=== PATIENT | female | born 1940 | race Caucasian/White ===

== ENCOUNTER 2018-06-20 08:30 | Inpatient (IN) ==
[2018-06-20] MEDS ORDERED: 0.9 % Sodium Chloride 1,000 ML IVC ONE ×2 (08:40→09:35)
--- NOTE | 2018-06-20 08:43 | Emergency Department Note ---
Disposition Clinical Impression: Pneumonia, Bradycardia Disposition: Admitted As Inpatient Condition: Fair General Adult HPI - General Chief complaint: ED Weakness Stated complaint: Low HR/BP Time Seen by Provider: 06/20/18 08:34 Nursing Notes Reviewed: Yes Vital Signs Reviewed: Yes - Related Data Home Medications Medication Instructions Recorded Confirmed Baclofen 10 mg PO BID 11/03/16 06/20/18 Divalproex Sodium [Depakote] 250 mg PO HS 11/03/16 06/20/18 Aspirin [Lo-Dose Aspirin EC] 81 mg PO QAM 12/30/16 06/20/18 Docusate Sodium 100 mg PO QAM 12/30/16 06/20/18 Donepezil HCl [Aricept] 10 mg PO HS 12/30/16 06/20/18 Fluticasone Propionate Nasal 50 mcg NS QAM 12/30/16 06/20/18 [Flonase] Montelukast Sodium [Singulair] 10 mg PO QAM 12/30/16 06/20/18 Polyethylene Glycol 1000 500 gm PO QAM 12/30/16 06/20/18 [Polyethylene Glycol] Acetaminophen [Non-Aspirin] 650 mg PO Q4H PRN 06/20/18 06/20/18 Atorvastatin Calcium [Lipitor] 20 mg PO QPM 06/20/18 06/20/18 Calcium Carbonate/Vitamin D3 1 tab PO DAILY 06/20/18 06/20/18 [Oyster Shell Calcium-Vit D Tab] Multivit/Ca/Min/Fe/FA [Thera M 1 each PO DAILY 06/20/18 06/20/18 Plus] Oxybutynin Chloride [Ditropan Xl] 10 mg PO DAILY 06/20/18 06/20/18 Sertraline [Zoloft] 100 mg PO DAILY 06/20/18 06/20/18 Previous Rx's Medication Instructions Recorded Esomeprazole Magnesium [Nexium] 20 mg PO DAILY PRN #0 01/12/17 Allergies Allergy/AdvReac Type Severity Reaction Status Date / Time No Known Allergies Allergy Verified 11/06/16 17:07 Past Medical History - Past Medical History Medical history: Reports: GERD, hyperlipidemia, hypertension Psychiatric history: Reports: depression 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 - Social History Smoking Status: Never smoker Smokeless Tobacco Status: No Alcohol use: Reports: none Drug use: Reports: none Course Vital Signs Temperature 97.6 F 06/20/18 08:32 Pulse Rate 33 06/20/18 08:32 Respiratory Rate 16 06/20/18 08:32 Blood Pressure 94/59 06/20/18 08:32 O2 Sat by Pulse Oximetry 92 06/20/18 08:32 Temperature 97.6 F 06/20/18 08:32 Pulse Rate 67 06/20/18 10:08 Respiratory Rate 18 06/20/18 11:38 Blood Pressure 92/55 06/20/18 11:38 O2 Sat by Pulse Oximetry 93 06/20/18 10:08 Oxygen Delivery Oxygen Delivery Room Air Medical Decision Making - MDM Narrative Medical decision making narrative: Chest X-Ray 06/20/18 08:37 IMPRESSION: 1. Right lower lobe airspace consolidation consistent with pneumonia. Follow-up imaging recommended to ensure resolution. 2. Small bilateral pleural effusions. 3. Stable cardiomegaly. D/ / Kiah Manrique MD / Kiah Manrique MD Interpreting Provider: Kiah Manrique MD 0935 hrs. colon as she is in a nursing facility will treat as healthcare acquired pneumonia. - Lab Data Result diagrams: 06/20/18 09:11 06/20/18 09:11 Lab Results 06/20/18 06/20/18 06/20/18 Range/Units 09:11 09:11 09:57 WBC 9.6 (4.3-11.1) K/mcL RBC 4.35 (3.82-4.97) M/mcL Hgb 12.5 (11.5-15.4) g/dL Hct 39.3 (35.3-44.9) % MCV 90.3 (83.0-100.0) fL MCH 28.7 (28.0-33.3) pg MCHC 31.8 (31.6-35.5) g/dL RDW 14.8 H (11.5-14.5) % Plt Count 194 (140-400) K/mcL MPV 10.8 (9.4-12.4) fL Immature Gran % 0.3 (0-4) % Seg Neutrophils % 77.8 % Lymphocytes % 10.4 % Monocytes % 6.9 % Eosinophils % 4.2 % Basophils % 0.4 % Neutrophils # 7.5 (1.6-8.9) K/mcL Lymphocytes # 1.0 (0.6-4.6) K/mcL Monocytes # 0.7 (0.0-1.3) K/mcL Eosinophils # 0.4 (0.0-0.6) K/mcL Basophils # 0.0 (0.0-0.2) K/mcL Sodium 140 (136-145) mEq/L Potassium 4.0 (3.5-5.1) mEq/L Chloride 108 H (98-107) mEq/L Carbon Dioxide 26 (23-29) mEq/L BUN 20 (8-23) mg/dL Creatinine 0.80 (0.60-1.20) mg/dL Est GFR ( Amer) > 60 (> 60) Est GFR (Non-Af Amer) > 60 (> 60) BUN/Creatinine Ratio 25 (6-26) Glucose 118 H (70-105) mg/dL Calculated Osmolality 294 (280-300) Lactic Acid 0.9 (0.5-2.2) mmol/L Calcium 8.8 (8.6-10.3) mg/dL Total Bilirubin 0.5 (0.3-1.0) mg/dL Direct Bilirubin 0.0 (0.0-0.2) mg/dL Indirect Bilirubin 0.5 (0.0-1.2) mg/dL AST 17 (13-39) Units/L ALT 11 (7-52) Units/L Alkaline Phosphatase 85 (34-104) Units/L Troponin I < 0.03 (< 0.04) ng/mL Serum Total Protein 6.1 L (6.4-8.9) g/dL Albumin 3.4 L (3.5-5.7) g/dL Globulin 2.7 (2.4-3.5) g/dL Albumin/Globulin Ratio 1.3 (1.1-2.2) Valproic Acid 21 L (50-100) mcg/mL Critical Care Time Critical Care Time: Yes Total Critical Care Time: 40 Attestation: Excluding any separately billable procedures Attestation Statement - Attestation Attestation: This documentation is done with the assistance of Dragon dictation. Despite efforts made to ensure accuracy, there may be inaccuracies in seasoner or spelling and typographical errors. I examined this patient and my medical decision-making was reviewed with the Resident Physician. I agree with the documented findings, disposition and treatment plan as described except to the extent set forth below. Patient seen and evaluated on arrival with EMS and Dr. Guerrier, I agree with her evaluation and management plan, supervise care the patient's stay. Patient presents from nursing facility with a history of bradycardia down below 60. Patient has no complaints except for cough. However her complaints tend to change. Medics state she has a history of dementia and psychiatric disorder. She is cooperative here. Looks like she has weakness on the right which is chronic for them possibly consistent with an old stroke. We will look up her previous medical history. Check a chest x-ray give her some fluids medical workup and then she will need admission for her bradycardia. Her blood pressure stable despite the bradycardia at this time.
[2018-06-20] MEDS ORDERED: *HR* Atropine Sulfate 1 MG/10 ML SYRINGE IVP ONE (08:49)
--- NOTE | 2018-06-20 09:03 | Emergency Department Note ---
Disposition Clinical Impression: Bradycardia Pneumonia Qualifiers: Pneumonia type: due to unspecified organism Laterality: right Lung location: upper lobe of lung Qualified Code(s): J18.1 - Lobar pneumonia, unspecified organism Disposition: Admitted As Inpatient Condition: Fair Time of Disposition: 11:03 General Adult HPI - General Chief complaint: ED Weakness Stated complaint: Low HR/BP Time Seen by Provider: 06/20/18 08:34 Source: patient, EMS Mode of arrival: EMS Limitations: no limitations Nursing Notes Reviewed: Yes Vital Signs Reviewed: Yes - History of Present Illness HPI Narrative: 77-year-old female with significant past medical history of hypertension and hyperlipidemia presented to the emergency Department chief complaint of hypotension and bradycardia. Patient lives at a [facility] facility. She was transferred here because they were concerned for low blood pressure and heart rate. The patient arrived her with in the 60s. Patient states she has had a cough for a long time but does not know if it has gotten worse recently. Patient is a poor historian. Patient denies any chest pain or shortness of breath. Denies any fevers or abdominal pain. Pain Scale: 0 - Related Data Home Medications Medication Instructions Recorded Confirmed Baclofen 10 mg PO BID 11/03/16 12/30/16 Divalproex Sodium [Depakote] 250 mg PO HS 11/03/16 12/30/16 Aspirin [Lo-Dose Aspirin EC] 81 mg PO QAM 12/30/16 12/30/16 Docusate Sodium 100 mg PO QAM 12/30/16 12/30/16 Donepezil HCl [Aricept] 10 mg PO HS 12/30/16 12/30/16 Fluticasone Propionate Nasal 50 mcg NS QA 12/30/16 12/30/16 [Flonase] Montelukast Sodium [Singulair] 10 mg PO QAM 12/30/16 12/30/16 Polyethylene Glycol 1000 500 gm PO QAM 12/30/16 12/30/16 [Polyethylene Glycol] Acetaminophen [Non-Aspirin] 650 mg PO Q4H PRN 06/20/18 06/20/18 Atorvastatin Calcium [Lipitor] 20 mg PO QPM 06/20/18 06/20/18 Calcium Carbonate/Vitamin D3 1 tab PO DAILY 06/20/18 06/20/18 [Oyster Shell Calcium-Vit D Tab] Multivit/Ca/Min/Fe/FA [Thera M 1 each PO DAILY 06/20/18 06/20/18 Plus] Oxybutynin Chloride [Ditropan Xl] 10 mg PO DAILY 06/20/18 06/20/18 Sertraline [Zoloft] 100 mg PO DAILY 06/20/18 06/20/18 Previous Rx's Medication Instructions Recorded Esomeprazole Magnesium [Nexium] 20 mg PO DAILY PRN #0 01/12/17 Allergies Allergy/AdvReac Type Severity Reaction Status Date / Time No Known Allergies Allergy Verified 11/06/16 17:07 All systems ED: reviewed and negative except as stated. Constitutional: Denies: fever, chills Eyes: Reports: as per HPI ENT ED: Reports: as per HPI Cardiovascular: Denies: chest pain, palpitations, dyspnea on exertion Respiratory: Reports: cough. Denies: dyspnea, wheezes Gastrointestinal: Denies: abdominal pain, nausea, vomiting Genitourinary: Reports: as per HPI Musculoskeletal: Reports: as per HPI Integumentary: Reports: as per HPI Neurological: Denies: weakness, numbness, paresthesias Psychiatric: Reports: as per HPI Endocrine: Reports: as per HPI Hematological/Lymphatic: Reports: as per HPI Allergic/Immunologic: Reports: as per HPI Past Medical History - Past Medical History Attestation: Yes The following information was validated with the patient. 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 Absent: scleral icterus, conjunctival injection - ENT ENT exam: normal exam, mucous membranes moist - Neck Neck exam: Present: normal inspection, full ROM. Absent: tenderness, meningismus - Chest Chest inspection: Present: normal inspection, symmetric chest wall rise. Absent : tenderness, rash - Respiratory Respiratory exam: Present: other (Coarse breath sounds throughout). Absent: respiratory distress, wheezes - Cardiovascular Cardiovascular exam: Present: regular rate, normal rhythm, normal heart sounds - Abdominal Exam Abdominal exam: Present: soft, Non-Tender. Absent: distention, guarding, rebound - Extremities Exam Extremities exam: Present: normal inspection, full ROM - Neurological Exam Neurological exam: Present: alert, oriented X3 - Psychiatric Psychiatric exam: Present: normal affect, normal mood - Skin Skin exam: Present: warm, intact Course Course Narrative: 77-year-old female presenting for bradycardia and hypotension. During examination patient's heart rate in the 60s. Patient states she has had cough but otherwise asymptomatic. After examination patient heart rate got down to 30s. 0.5 mg atropine given at that time the patient responded well. Due to patient's cough and bradycardia we will perform laboratory analysis including CBC, BMP along with an x-ray and an EKG. Patient is alert and oriented 3 in the room. Vital signs show bradycardia but otherwise stable. Blood pressure in the mid 90s systolic. Patient asymptomatic at this time. Disposition most likely admission but pending results. Patient agrees with this plan. - Reevaluation(s) Reevaluation #1: Patient's laboratory analysis benign. Chest x-ray does show pneumonia. Due to patient living in [facility]dc facility we will provide her with vancomycin, Levaquin and Zosyn. After atropine patient has had no episodes of bradycardia. Has been a symptomatically throughout her stay. I spoke with the hospitalist on-call Dr. Perez who agrees to accept the patient at this time. She is alert and oriented 3 and room with stable vital signs. Vital Signs Temperature 97.6 F 06/20/18 08:32 Pulse Rate 33 06/20/18 08:32 Respiratory Rate 16 06/20/18 08:32 Blood Pressure 94/59 06/20/18 08:32 O2 Sat by Pulse Oximetry 92 06/20/18 08:32 Temperature 97.6 F 06/20/18 08:32 Pulse Rate 67 06/20/18 10:08 Respiratory Rate 18 06/20/18 10:08 Blood Pressure 118/55 06/20/18 10:08 O2 Sat by Pulse Oximetry 93 06/20/18 10:08 Oxygen Delivery Oxygen Delivery Room Air Medical Decision Making - Lab Data Result diagrams: 06/20/18 09:11 06/20/18 09:11 Lab Results 06/20/18 06/20/18 06/20/18 Range/Units 09:11 09:11 09:57 WBC 9.6 (4.3-11.1) K/mcL RBC 4.35 (3.82-4.97) M/mcL Hgb 12.5 (11.5-15.4) g/dL Hct 39.3 (35.3-44.9) % MCV 90.3 (83.0-100.0) fL MCH 28.7 (28.0-33.3) pg MCHC 31.8 (31.6-35.5) g/dL RDW 14.8 H (11.5-14.5) % Plt Count 194 (140-400) K/mcL MPV 10.8 (9.4-12.4) fL Immature Gran % 0.3 (0-4) % Seg Neutrophils % 77.8 % Lymphocytes % 10.4 % Monocytes % 6.9 % Eosinophils % 4.2 % Basophils % 0.4 % Neutrophils # 7.5 (1.6-8.9) K/mcL Lymphocytes # 1.0 (0.6-4.6) K/mcL Monocytes # 0.7 (0.0-1.3) K/mcL Eosinophils # 0.4 (0.0-0.6) K/mcL Basophils # 0.0 (0.0-0.2) K/mcL Sodium 140 (136-145) mEq/L Potassium 4.0 (3.5-5.1) mEq/L Chloride 108 H (98-107) mEq/L Carbon Dioxide 26 (23-29) mEq/L BUN 20 (8-23) mg/dL Creatinine 0.80 (0.60-1.20) mg/dL Est GFR ( Amer) > 60 (> 60) Est GFR (Non-Af Amer) > 60 (> 60) BUN/Creatinine Ratio 25 (6-26) Glucose 118 H (70-105) mg/dL Calculated Osmolality 294 (280-300) Lactic Acid 0.9 (0.5-2.2) mmol/L Calcium 8.8 (8.6-10.3) mg/dL Total Bilirubin 0.5 (0.3-1.0) mg/dL Direct Bilirubin 0.0 (0.0-0.2) mg/dL Indirect Bilirubin 0.5 (0.0-1.2) mg/dL AST 17 (13-39) Units/L ALT 11 (7-52) Units/L Alkaline Phosphatase 85 (34-104) Units/L Troponin I < 0.03 (< 0.04) ng/mL Serum Total Protein 6.1 L (6.4-8.9) g/dL Albumin 3.4 L (3.5-5.7) g/dL Globulin 2.7 (2.4-3.5) g/dL Albumin/Globulin Ratio 1.3 (1.1-2.2) Valproic Acid 21 L (50-100) mcg/mL - EKG Data EKG #1 EKG attestation: Yes I reviewed and interpreted this EKG. EKG results narrative: Sinus rhythm with PVCs. 66 bpm. Left atrial enlargement. AZ interval 170, QRS 74, QTC 394. Diffuse artifact throughout the EKG. No signs of acute ST segment elevation or ischemia. Compared to previous EKG completed on 2016 new left atrial enlargement. new PVCs.
[2018-06-20] MEDS ORDERED: Levofloxacin 750 MG/150 ML 750 MG/150 ML BAG IVPB ONE (09:35)
[2018-06-20] MEDS ORDERED: Piperacillin/Tazobactam 3.375 GM in 0.9 % Sodium Chloride Mini Bag 100 ML IVPB ONE (09:35)
[2018-06-20 09:37] LABS: Basophils % 0.4 %; Eosinophils # 0.4 K/mcL (0.0-0.6); Eosinophils % 4.2 %; Hematocrit 39.3 % (35.3-44.9); Hemoglobin 12.5 g/dL (11.5-15.4); Immature Granulocytes % 0.3 % (0-4); Lymphocytes % 10.4 %; Mean Corpuscular HGB Conc 31.8 g/dL (31.6-35.5); Mean Corpuscular Hemoglobin 28.7 pg (28.0-33.3); Mean Corpuscular Volume 90.3 fL (83.0-100.0); Mean Platelet Volume 10.8 fL (9.4-12.4); Monocytes # 0.7 K/mcL (0.0-1.3); Monocytes % 6.9 %; Neutrophils # 7.5 K/mcL (1.6-8.9); Platelet Count 194 K/mcL (140-400); Red Blood Count 4.35 M/mcL (3.82-4.97); Red Cell Distribution Width 14.8 % (11.5-14.5); Segmented Neutrophils % 77.8 %
[2018-06-20 09:52] LABS: Troponin I < 0.03 ng/mL (< 0.04)
[2018-06-20 09:53] LABS: Alanine Aminotransferase 11 Units/L (7-52); Albumin 3.4 g/dL (3.5-5.7); Albumin/Globulin Ratio 1.3 (1.1-2.2); Alkaline Phosphatase 85 Units/L (34-104); Aspartate Amino Transferase 17 Units/L (13-39); BUN/Creatinine Ratio 25 (6-26); Bilirubin,Indirect 0.5 mg/dL (0.0-1.2); Bilirubin,Total 0.5 mg/dL (0.3-1.0); Blood Urea Nitrogen 20 mg/dL (8-23); Calcium 8.8 mg/dL (8.6-10.3); Carbon Dioxide 26 mEq/L (23-29); Chloride 108 mEq/L (98-107); Globulin 2.7 g/dL (2.4-3.5); Glucose 118 mg/dL (70-105); Osmolality,Calculated 294 (280-300); Sodium 140 mEq/L (136-145); Total Protein 6.1 g/dL (6.4-8.9); Valproate 21 mcg/mL (50-100); eGFR For Non-African Americans > 60 (> 60)
[2018-06-20 11:26] LABS: Bilirubin,Urine Negative (Negative); Blood,Urine Negative (Negative); Clarity,Urine Clear (Clear); Color,Urine Yellow (Yellow); Glucose,Urine (UA) Normal (Normal); Ketones,Urine Trace mg/dL (Negative); Leukocyte Esterase,Urine Small (Negative); Nitrite,Urine Negative (Negative); Protein,Urine Trace mg/dL (Neg-Trace); Specific Gravity,Urine 1.027 (1.010-1.025); Urobilinogen,Urine Normal (Normal)
[2018-06-20 11:28] LABS: Bacteria,Urine None Seen per hpf (None-Few); Hyaline Casts,Urine None Seen per lpf (None-Few); Squamous Epithelial Cell,Urine Many per lpf (None-Few)
[2018-06-20] MEDS: 0.9 % Sodium Chloride 1,000 ML IVC SCH (15:58)
[2018-06-20] MEDS: Piperacillin/Tazobactam 3.375 GM in 0.9 % Sodium Chloride Mini Bag 100 ML IVPB SCH ×2 (15:59→23:34)
[2018-06-20] MEDS ORDERED: Acetaminophen 325 MG TABLET PO PRN (19:58)
[2018-06-20] MEDS: Baclofen 10 MG TABLET PO SCH (21:46)
[2018-06-20] MEDS: Divalproex (12 HR) 250 MG TABLET PO SCH (21:46)
[2018-06-20] MEDS: Ipratropium/Albuterol Neb 3 ML IH SCH (22:39)
--- NOTE | 2018-06-21 01:59 | Internal Med History&Physical ---
Date of Encounter: 06/20/18 Time of Encounter: 23:00 Internal Medicine - H&P: HPI Chief complaint: Bradycardia with hypotension Admitted From: Long-term Nursing Facility Plans for Post Hospital Care: Transfer Custodial Facility History of present illness: Ms. Prado is a 77 year old female. They brought her to our emergency room from her long term facility, after she had developed bradycardia/hypotension. It was associated with some dizziness/lightheadedness. Her first set of vitals from 8:32 AM showed the possible 33 with a blood pressure of 94/59. The patient got injection of atropine. We did not see any more problems with pulse/blood pressure later into this hospitalization. Chest x-ray done at admission showed right lower lobe consolidation; likely infiltrate. The patient denies fever and chills. She does have mild cough; not worsened recently. She does have multiple medical problems including hyperlipidemia, GERD, seizure disorder, hyperactive bladder and depression with anxiety. Review of systems: All 14 organ systems were reviewed by me with the patient. Positive and pertinent negative findings are listed above. The rest of organ systems is negative. Physical Exam: Skin: Free of rash and discoloration. Eyes: Sclera is white. There is no discharge from eyes. ENMT: Oral/pharyngeal mucosa is normal in appearance. There is no discharge from nose or ears. Respiratory: Normal breath sounds with no crackles and wheezes bilaterally. CV: Heart is regular with no gallop or murmur. GI: Abdomen is flat and soft with no palpable mass or visceromegaly. : There is no tenderness in patient's flanks bilaterally. Neuro exam: He has good strength in upper and lower extremities. He has normal eye movements. A/P: Symptomatic bradycardia was observed at admission. Responded to 1 dose of atropine. It could be reactive. The patient seems to have underlying pneumonia. Right lower lobe infiltrate, likely pneumonia. We will keep her on Zosyn and Levaquin. Seizure disorder. We will continue Depakote. Past Med Surg Social Fam HX - Past Medical History Medical history: GERD, hyperlipidemia, hypertension Additional medical history: OP. MRDD Psychiatric history: depression - Past Surgical History Surgical History: no surgical history Additional surgical history: angina - Social History Smoking Status: Never smoker Smokeless Tobacco Status: No Alcohol use: none Drug use: none - Family History Mother Living Status: Father Living Status: Internal Medicine - H&P: Meds Baclofen 10 mg PO BID 11/03/16 [History] Divalproex Sodium [Depakote] 250 mg PO HS 11/03/16 [History] Aspirin [Lo-Dose Aspirin EC] 81 mg PO QAM 12/30/16 [History] Docusate Sodium 100 mg PO QAM 12/30/16 [History] Donepezil HCl [Aricept] 10 mg PO HS 12/30/16 [History] Fluticasone Propionate Nasal [Flonase] 50 mcg NS QAM 12/30/16 [History] Montelukast Sodium [Singulair] 10 mg PO QAM 12/30/16 [History] Polyethylene Glycol 1000 [Polyethylene Glycol] 17 gm PO QAM 12/30/16 [History] Esomeprazole Magnesium [Nexium] 20 mg PO DAILY PRN #0 01/12/17 [Rx] Acetaminophen [Non-Aspirin] 650 mg PO Q4H PRN 06/20/18 [History] Atorvastatin Calcium [Lipitor] 20 mg PO QPM 06/20/18 [History] Calcium Carbonate/Vitamin D3 [Oyster Shell Calcium-Vit D Tab] 1 tab PO DAILY 05/02 [History] Multivit/Ca/Min/Fe/FA [Thera M Plus] 1 each PO DAILY 06/20/18 [History] Oxybutynin Chloride [Ditropan Xl] 10 mg PO DAILY 06/20/18 [History] Sertraline [Zoloft] 100 mg PO DAILY 06/20/18 [History] 3 Allergy/AdvReac Type Severity Reaction Status Date / Time No Known Allergies Allergy Verified 11/06/16 17:07 - Constitutional Vitals: Temp Pulse Resp BP Pulse Ox 98.4 F 53 16 131/60 95 06/20/18 23:45 06/20/18 23:50 06/20/18 23:45 06/20/18 23:45 06/20/18 23:45 General appearance: Present: A&O X 3, answers questions appropriately Internal Med - H&P Results - Labs CBC & Chem 7: 06/21/18 05:21 06/21/18 05:21 - Assessment and plan (1) Bradycardia Current Visit: Yes Status: Acute (2) Pneumonia Current Visit: Yes Status: Acute Qualifiers: Pneumonia type: due to unspecified organism Laterality: right Lung location: lower lobe of lung Qualified Code(s): J18.1 - Lobar pneumonia, unspecified organism (3) Seizure disorder Current Visit: Yes Status: Chronic - Time Spent With Patient Total time spent is greater than 50% in coordination of care (as documented) at patient's floor/unit and/or counseling patient: Greater than 35 minutes
[2018-06-21] MEDS: Ipratropium/Albuterol Neb 3 ML IH SCH ×4 (04:39→22:49)
[2018-06-21] MEDS: *HR* Enoxaparin 40 MG/0.4 ML SYRINGE SQ SCH (05:21)
[2018-06-21 06:10] LABS: Basophils # 0.1 K/mcL (0.0-0.2); Basophils % 0.6 %; Eosinophils # 0.5 K/mcL (0.0-0.6); Eosinophils % 4.5 %; Hematocrit 35.9 % (35.3-44.9); Hemoglobin 11.5 g/dL (11.5-15.4); Immature Granulocytes % 0.3 % (0-4); Lymphocytes # 1.6 K/mcL (0.6-4.6); Lymphocytes % 15.2 %; Mean Corpuscular Hemoglobin 28.9 pg (28.0-33.3); Mean Corpuscular Volume 90.2 fL (83.0-100.0); Mean Platelet Volume 11.2 fL (9.4-12.4); Monocytes # 0.8 K/mcL (0.0-1.3); Monocytes % 7.7 %; Neutrophils # 7.3 K/mcL (1.6-8.9); Platelet Count 188 K/mcL (140-400); Red Blood Count 3.98 M/mcL (3.82-4.97); Red Cell Distribution Width 14.6 % (11.5-14.5); Segmented Neutrophils % 71.7 %
[2018-06-21 06:33] LABS: BUN/Creatinine Ratio 16 (6-26); Blood Urea Nitrogen 13 mg/dL (8-23); Calcium 8.5 mg/dL (8.6-10.3); Carbon Dioxide 22 mEq/L (23-29); Chloride 112 mEq/L (98-107); Glucose 100 mg/dL (70-105); Magnesium 1.9 mg/dL (1.6-2.6); Osmolality,Calculated 292 (280-300); Potassium 3.9 mEq/L (3.5-5.1); Sodium 141 mEq/L (136-145); eGFR For Non-African Americans > 60 (> 60)
--- NOTE | 2018-06-21 06:58 | Electrocardiograph Report ---
[email or web address] Test Date: 2018-06-20 Pat Name: Rochelle Prado Department: [id number] Room: 2N13 Gender: F Small Equipment Operator: : [id number] Requested By: Rafat Merida Order Number: [id number] Reading MD: Erich Ceron Measurements Intervals [place] Rate: 66 P: 59 TN: 178 QRS: 18 QRSD: 74 T: -32 QT: 380 QTc: 394 Interpretive Statements SINUS RHYTHM WITH FREQUENT VENTRICULAR PREMATURE COMPLEXES IN A BIGEMINAL PATTERN LEFT ATRIAL ENLARGEMENT [-0.15mV P WAVE IN V1/V2] POSSIBLE ANTERIOR MYOCARDIAL INFARCTION [30 ms Q WAVE IN V3/V4, OR R < 0.2 mV IN V4], PROBABLY OLD Electronically Signed On 06-21-2018 6:57:13 EDT by Erich Ceron
[2018-06-21] MEDS: Loratadine 10 MG TABLET PO SCH (08:41)
[2018-06-21] MEDS: Baclofen 10 MG TABLET PO SCH ×2 (08:41→21:09)
[2018-06-21] MEDS: Multivit/Ca/Min/Fe/FA 1 TAB TABLET PO SCH (08:41)
[2018-06-21] MEDS: Aspirin Enteric Coated 81 MG Tablet PO SCH (08:42)
[2018-06-21] MEDS: Piperacillin/Tazobactam 3.375 GM in 0.9 % Sodium Chloride Mini Bag 100 ML IVPB SCH ×3 (08:42→23:28)
[2018-06-21] MEDS: Levofloxacin 500 MG/100 ML 500 MG/100 ML BAG IVPB SCH (08:42)
[2018-06-21] MEDS: 0.9 % Sodium Chloride 1,000 ML IVC SCH (08:46)
--- NOTE | 2018-06-21 09:10 | Internal Med Progress Note ---
Hospitalist Progress Note - Encounter Date of Encounter: 06/21/18 Time of Encounter: 09:08 - Subjective Interval History: Patient had no acute events overnight after admission. She seems to be in good spirits. She denies any fever, chills, chest pain, SOB, nausea, vomiting, or abdominal pain. She has no complaints at this time. She wants to go home. - Exam Vitals: Temp Pulse Resp BP Pulse Ox 97.8 F 68 14 130/69 92 06/21/18 07:29 06/21/18 07:29 06/21/18 07:29 06/21/18 07:29 06/21/18 07:29 Exam: Gen - Awake, alert, no acute distress HEENT - NCAT, PERRLA, EOMI, hearing grossly intact, oropharynx benign CV - RRR, normal S1 and S2, no M/R/G, no BLE edema Resp - Normal WOB, CTAB, no W/R/R GI - Soft, NT/ND, no masses, normal bowel sounds, no HSP Skin - Warm, dry, no rashes/lesions/ulcers Psych - Normal mood and affect, no depression or anxiety - Assessment and Plan (1) Bradycardia Current Visit: Yes Status: Acute Assessment and Plan: HR improved. Asymptomatic at this time. Consult cardiology; appreciate input. Discontinue beta shahana. Continue IVF. Will await further recommendations from cardiology. (2) Pneumonia Current Visit: Yes Status: Acute Assessment and Plan: Continue IV levaquin and IV zosyn; will deescalate with improvement. Continue respiratory support with duonebs. Add guaifenesin and claritin. Continue supplemental O2; wean as tolerated. (3) Dementia Current Visit: No Status: Chronic Assessment and Plan: Continue home medications. (4) Mood disorder Current Visit: Yes Status: Acute Assessment and Plan: Continue home medications. (5) DVT prophylaxis Current Visit: Yes Status: Acute Assessment and Plan: Continue SQ lovenox. - Time Spent with Patient Total time spent is greater than 50% in coordination of care (as documented) at patient's floor/unit and/or counseling patient: less than 15 minutes Plan of Care Discussed with: patient (Nurse, Pharmacist) Internal Medicine: Result - Labs CBC & Chem 7: 06/21/18 05:21 06/21/18 05:21 Labs: Short CBC 06/21/18 Range/Units 05:21 WBC 10.2 (4.3-11.1) K/mcL Hgb 11.5 (11.5-15.4) g/dL Hct 35.9 (35.3-44.9) % Plt Count 188 (140-400) K/mcL Neutrophils # 7.3 (1.6-8.9) K/mcL BMP 06/21/18 05:21 Sodium 141 Potassium 3.9 Chloride 112 H Carbon Dioxide 22 L BUN 13 Creatinine 0.80 Glucose 100 Calcium 8.5 L Consult Discharge Plan - Plan Referrals: Maki Lopez MD [Primary Care Provider] - (Patient is from [facility] no PCP appointment needed) (2) Pneumonia Qualifiers: Pneumonia type: due to unspecified organism Laterality: right Lung location : upper lobe of lung Qualified Code(s): J18.1 - Lobar pneumonia, unspecified organism (3) Dementia Qualifiers: Dementia type: unspecified type Dementia behavioral disturbance: without behavioral disturbance Qualified Code(s): F03.90 - Unspecified dementia without behavioral disturbance
--- NOTE | 2018-06-21 10:57 | Cardiology Consult Note ---
<Philipp Schwartz - Last Filed: 06/21/18 14:47> Date of Encounter: 06/21/18 Time of Encounter: 10:54 Assessment and Plan (1) Bradycardia Current Visit: Yes Status: Acute Patient brought to the ER from outside facility with one set of vitals showing heart rate of 33 bpm. Patient EKG shows rate of 66 bpm with ventricular bigeminy Patient given 0.5 mg atropine in the ER and has remained asymptomatic with heart rate average 65 bpm on telemetry, no pauses or dysrhythmia noted Per patient history, not on beta shahana at home, however, continue discontinuation of AV missy blocking drugs. TSH, K, Mg, trop within normal limits Plan: If patient remains in regular rate and asymptomatic, follow up outpatient if necessary. Continue discontinuation of AV missy blocking drugs Currently defer to primary team for order of echocardiogram, can be performed outpatient. Otherwise, no further cardiac testing is recommended. Discussion w patient/family: The assessment and plan as outlined above was discussed with the patient and/or family members who expressed understanding and agreement. All questions were answered. Thank you for involving us in the care of your patient. Please call with any questions. History of Present Illness Consult date: 06/21/18 Requesting physician: Gennaro Fuentes Consult reason: symptomatic bradycardia Chief complaint: Cough History of present illness: Ms. Prado is a 77 year old female presenting for cardiology consult for bradycardia. Patient was admitted on 06/20/18 for RLL HCAP from nursing facility and was found while in the ER to have heart rate of 33 bpm. Patient is poor historian with stated history per EMS of dementia. Per patient records, patient was brought in for lightheaded and dizziness with cough and generalized weakness while at the senior living and was brought in for further evaluation. EKG performed in the ER showed sinus rhythm 66, set of vitals shows heart rate of 33, no EKG to establish this, patient was given .5mg of atropine and heart rate was at 67 bpm and has had heart rate in the 70's since this time. Patient had CXR and chest CT which found RLL opacities suggestive of pneumonia, bilateral pleural effusion with stable cardiomegaly. Upon admission, patient has remained stable with heart rates in the 70-80s. Patient has remained asymptomatic. Patient continues to deny chest pain, palpitations, syncope, or dizziness. Today, patient states that she is doing well. She denies chest pain or sob. She denies syncopal episodes, current lightheaded or dizziness. Continues to have cough without production. She denies current fever or chills. She denies abdominal pain, nausea or vomiting. Past Med Surg Social Fam HX - Past Medical History Medical history: GERD, hyperlipidemia, hypertension Additional medical history: OP. MRDD Psychiatric history: depression - Past Surgical History Surgical History: no surgical history Additional surgical history: angina - Social History Smoking Status: Never smoker Smokeless Tobacco Status: No Alcohol use: none Drug use: none - Family History Mother Living Status: Father Living Status: Medications and Allergies Baclofen 10 mg PO BID 11/03/16 [History] Divalproex Sodium [Depakote] 250 mg PO HS 11/03/16 [History] Aspirin [Lo-Dose Aspirin EC] 81 mg PO QAM 12/30/16 [History] Docusate Sodium 100 mg PO QAM 12/30/16 [History] Donepezil HCl [Aricept] 10 mg PO HS 12/30/16 [History] Fluticasone Propionate Nasal [Flonase] 50 mcg NS QAM 12/30/16 [History] Montelukast Sodium [Singulair] 10 mg PO QAM 12/30/16 [History] Polyethylene Glycol 1000 [Polyethylene Glycol] 17 gm PO QAM 12/30/16 [History] Esomeprazole Magnesium [Nexium] 20 mg PO DAILY PRN #0 01/12/17 [Rx] Acetaminophen [Non-Aspirin] 650 mg PO Q4H PRN 06/20/18 [History] Atorvastatin Calcium [Lipitor] 20 mg PO QPM 06/20/18 [History] Calcium Carbonate/Vitamin D3 [Oyster Shell Calcium-Vit D Tab] 1 tab PO DAILY 05/02 [History] Multivit/Ca/Min/Fe/FA [Thera M Plus] 1 each PO DAILY 06/20/18 [History] Oxybutynin Chloride [Ditropan Xl] 10 mg PO DAILY 06/20/18 [History] Sertraline [Zoloft] 100 mg PO DAILY 06/20/18 [History] 3 Allergy/AdvReac Type Severity Reaction Status Date / Time No Known Allergies Allergy Verified 11/06/16 17:07 All Systems Review: The remainder of the systems were reviewed and are negative - Constitutional Constitutional: weakness (generalized), no chills, no fatigue, no fever(s), no headache(s), no stops breathing during sleep - Cardiovascular Cardiovascular: lightheadedness, no chest pain at rest, no diaphoresis, no dyspnea at rest, no radiating jaw, neck or arm pain, no leg edema, no palpitations, no syncope - Respiratory Respiratory: cough, dyspnea - Gastrointestinal Gastrointestinal: no abdominal pain, no diarrhea, no nausea - Musculoskeletal Musculoskeletal: no muscle weakness - Integumentary Integumentary: no rash - Neurological Neurological: no dizziness, no focal weakness, no numbness, no syncope, no tingling Physical Examination Vital Signs, Last 4 Hours Temp Pulse Resp BP Pulse Ox 06/21/18 07:29 97.8 F 68 14 130/69 92 General: Conversant, No Apparent Distress HEENT: Atraumatic, Normocephaly, Mucus Membranes Moist Neck: No JVD Cardiac: Reg Rate and Rhythm, Normal S1 and S2 Lungs: Normal Breath Sounds Neuro: Alert and responsive Abdomen: Soft, Non-Tender Skin: No rashes noted on visualized skin Musculoskeletal: No Chest Wall Tenderness Extremities: No Edema, Normal Pulses Results 06/21/18 05:21 06/21/18 05:21 Lab Results 06/21/18 06/21/18 05:21 05:21 WBC 10.2 Hgb 11.5 Hct 35.9 Plt Count 188 Sodium 141 Potassium 3.9 Chloride 112 H Carbon Dioxide 22 L BUN 13 Creatinine 0.80 Glucose 100 Calcium 8.5 L Magnesium 1.9 - Imaging and Cardiology Chest Xray: report reviewed - EKG Interpretation EKG results cardiology: personally reviewed (EKG performed 06/20/18 shows ventr rate of 66, with ventricular bigeminy pattern, left atrial enlargement, no acute ischemic changes noted) Consult Discharge Plan - Plan Referrals: Maki Lopez MD [Primary Care Provider] - (Patient is from [facility] no PCP appointment needed) <Haydee Lama - Last Filed: 06/21/18 15:59> Date of Encounter: 06/21/18 - Attending Attestation I examined this patient and my medical decision-making was reviewed with the Resident Physician. I agree with the documented findings, disposition and treatment plan as described except to the extent set forth below. Ms. Prado presented from nursing facility for generalized weakness and nonspecific symptoms, being treated for HCAP. Per documentation, outside facility noted low heart rates, 30's. No objective evidence of heart rate in the 30's here at [facility]. ECG on admit HR 66 bpm with ventricular bigeminy. Patient resting comfortably in bed without complaints. Vital signs reviewed - HR 60's, oxygenating well on 2L NC, not tachypneic, afebrile. Labs reviewed - normal kidney function, normal electrolytes, troponin negative. CT reviewed - concern for PNA, bowel herniated into mediastinum not new. IMPRESSION/PLAN: 1. Reported bradycardia: No objective evidence of bradycardia. Heart rates on telemetry have been in the 60's, no significant pauses or dysrhythmia on telemetry. Ventricular bigeminy noted on admitting ECG, HR 66. Can consider Echo for evaluation of structure/function - will defer to primary team. Patient without cardiac symptoms. No further cardiac testing otherwise warranted at this time. Not on AVN blockers. Consider outpatient evaluation if appropriate. Thank you for the consult. Will sign off. Please call with questions. Assessment and Plan Discussion w patient/family: The assessment and plan as outlined above was discussed with the patient and/or family members who expressed understanding and agreement. All questions were answered. Thank you for involving us in the care of your patient. Please call with any questions. History of Present Illness History of present illness: Ms. Prado is a 77 year old female All Systems Review: The remainder of the systems were reviewed and are negative Results 06/21/18 05:21 06/21/18 05:21 Lab Results 06/21/18 06/21/18 05:21 05:21 WBC 10.2 Hgb 11.5 Hct 35.9 Plt Count 188 Sodium 141 Potassium 3.9 Chloride 112 H Carbon Dioxide 22 L BUN 13 Creatinine 0.80 Glucose 100 Calcium 8.5 L Magnesium 1.9
[2018-06-21] MEDS: CALCIUM CARBONATE PO SCH (11:39)
[2018-06-21] MEDS: Fluticasone Propionate Nasal 50 MCG/SPRAY BOTTLE NS SCH (11:40)
[2018-06-21] MEDS: Divalproex (12 HR) 250 MG TABLET PO SCH (21:09)
[2018-06-22] MEDS: Ipratropium/Albuterol Neb 3 ML IH SCH ×2 (03:53→09:46)
[2018-06-22 04:16] LABS: Basophils # 0.1 K/mcL (0.0-0.2); Basophils % 0.5 %; Eosinophils # 0.3 K/mcL (0.0-0.6); Eosinophils % 3.1 %; Hematocrit 35.3 % (35.3-44.9); Hemoglobin 11.4 g/dL (11.5-15.4); Immature Granulocytes % 0.3 % (0-4); Lymphocytes # 1.3 K/mcL (0.6-4.6); Lymphocytes % 11.7 %; Mean Corpuscular HGB Conc 32.3 g/dL (31.6-35.5); Mean Corpuscular Hemoglobin 28.9 pg (28.0-33.3); Mean Corpuscular Volume 89.6 fL (83.0-100.0); Mean Platelet Volume 11.1 fL (9.4-12.4); Monocytes # 0.8 K/mcL (0.0-1.3); Monocytes % 6.9 %; Neutrophils # 8.6 K/mcL (1.6-8.9); Platelet Count 192 K/mcL (140-400); Red Blood Count 3.94 M/mcL (3.82-4.97); Red Cell Distribution Width 14.6 % (11.5-14.5); Segmented Neutrophils % 77.5 %
[2018-06-22 04:34] LABS: BUN/Creatinine Ratio 12 (6-26); Blood Urea Nitrogen 10 mg/dL (8-23); Calcium 8.8 mg/dL (8.6-10.3); Carbon Dioxide 24 mEq/L (23-29); Chloride 108 mEq/L (98-107); Glucose 84 mg/dL (70-105); Osmolality,Calculated 286 (280-300); Potassium 4.1 mEq/L (3.5-5.1); Sodium 139 mEq/L (136-145); eGFR For Non-African Americans > 60 (> 60)
[2018-06-22] MEDS: *HR* Enoxaparin 40 MG/0.4 ML SYRINGE SQ SCH (05:41)
[2018-06-22] MEDS: Multivit/Ca/Min/Fe/FA 1 TAB TABLET PO SCH (08:19)
[2018-06-22] MEDS: Aspirin Enteric Coated 81 MG Tablet PO SCH (08:19)
[2018-06-22] MEDS: Loratadine 10 MG TABLET PO SCH (08:19)
[2018-06-22] MEDS: CALCIUM CARBONATE PO SCH (08:19)
[2018-06-22] MEDS: Levofloxacin 500 MG/100 ML 500 MG/100 ML BAG IVPB SCH (08:20)
[2018-06-22] MEDS: Baclofen 10 MG TABLET PO SCH (08:20)
[2018-06-22] MEDS: Fluticasone Propionate Nasal 50 MCG/SPRAY BOTTLE NS SCH (08:30)
[2018-06-22] MEDS ORDERED: 0.9 % Sodium Chloride 1,000 ML IVC ONE (08:30)
--- NOTE | 2018-06-22 08:37 | Discharge Summary ---
- NOTES TO OUTPATIENT PROVIDER Notes to Outpatient Provider: Follow up with PCP in 2-3 days after discharge. Recheck BMP and CBC at that time. Make appointment for outpatient ECHO due to bradycardia. Refer to cardiology if necessary. Date of Encounter: 06/22/18 Time of Encounter: 08:35 - Discharge Diagnosis (1) Bradycardia Priority: Primary Status: Acute (2) Pneumonia Priority: Secondary Status: Acute Qualifiers: Pneumonia type: due to unspecified organism Laterality: right Lung location: lower lobe of lung Qualified Code(s): J18.1 - Lobar pneumonia, unspecified organism (3) Dementia Priority: Secondary Status: Chronic Qualifiers: Dementia type: unspecified type Dementia behavioral disturbance: without behavioral disturbance Qualified Code(s): F03.90 - Unspecified dementia without behavioral disturbance (4) Mood disorder Priority: Secondary Status: Chronic (5) DVT prophylaxis Priority: Secondary Status: Acute Hospital course: Ms. Prado is a 77 year old female admitted for bradycardia and pneumonia. Patient was admitted to step down unit with telemetry. She was started on IV levaquin and IV zosyn. HR improved after admission, and no further episodes of bradycardia. Cardiology was consulted. They recommended outpatient ECHO and follow up as needed. No further interventions at this time. Patient will be transitioned to PO levaquin to complete 7 full days of treatment. She will follow up with PCP in 2-3 days after discharge. BMP and CBC can be rechecked at that time. Patient has met maximum benefit of this hospitalization and will be discharged home in stable condition. Discharge discussed with: patient, nurse, other (Pharmacist) - Time Spent with Patient Total time spent providing and/or coordinating discharge services: Greater than 30 minutes - Discharge Medications Prescriptions: Levofloxacin [Levaquin] 750 mg PO DAILY 5 Days #5 tablet Home Medications: Baclofen 10 mg PO BID 11/03/16 [History] Divalproex Sodium [Depakote] 250 mg PO HS 11/03/16 [History] Aspirin [Lo-Dose Aspirin EC] 81 mg PO QAM 12/30/16 [History] Docusate Sodium 100 mg PO QA 12/30/16 [History] Donepezil HCl [Aricept] 10 mg PO HS 12/30/16 [History] Fluticasone Propionate Nasal [Flonase] 50 mcg NS QAM 12/30/16 [History] Montelukast Sodium [Singulair] 10 mg PO QAM 12/30/16 [History] Polyethylene Glycol 1000 [Polyethylene Glycol] 17 gm PO QAM 12/30/16 [History] Esomeprazole Magnesium [Nexium] 20 mg PO DAILY PRN #0 01/12/17 [Rx] Acetaminophen [Non-Aspirin] 650 mg PO Q4H PRN 06/20/18 [History] Atorvastatin Calcium [Lipitor] 20 mg PO QPM 06/20/18 [History] Calcium Carbonate/Vitamin D3 [Oyster Shell Calcium-Vit D Tab] 1 tab PO DAILY 05/02 [History] Multivit/Ca/Min/Fe/FA [Thera M Plus] 1 each PO DAILY 06/20/18 [History] Oxybutynin Chloride [Ditropan Xl] 10 mg PO DAILY 06/20/18 [History] Sertraline [Zoloft] 100 mg PO DAILY 06/20/18 [History] Levofloxacin [Levaquin] 750 mg PO DAILY 5 Days #5 tablet 06/22/18 [Rx] Allergies/Adverse Reactions: 3 Allergy/AdvReac Type Severity Reaction Status Date / Time No Known Allergies Allergy Verified 11/06/16 17:07 Date of admission: 06/20/18 17:23 Primary care physician: Maki Lopez Consults: 06/21/18 08:42 Consult to Cardiology [CONS] Routine Comment: Consulting Provider: Cardiology Angela Reason for Consult: Bradycardia Call Completed: Yes Discharging clinician: Gennaro Fuentes Anticipated date of discharge: 06/22/18 - Constitutional Vitals: Temp Pulse Resp BP Pulse Ox 98.3 F 74 18 95/76 93 06/22/18 07:32 06/22/18 07:32 06/22/18 07:32 06/22/18 07:32 06/22/18 07:32 General appearance: Present: cooperative, A&O X 3, pleasant, no acute distress, answers questions appropriately - Respiratory Respiratory exam: Present: CTAB. Absent: accessory muscle use, rales, rhonchi, wheezes Additional comments: Normal WOB - Cardiovascular Cardiovascular exam: Present: RRR, +S1, +S2. Absent: diastolic murmur, gallop, rubs, systolic murmur Additional comments: No BLE edema - GI/Abdominal GI/Abdominal exam: Present: normal bowel sounds, soft. Absent: distended, hepatomegaly, mass, splenomegaly, tenderness - Psychiatric Psychiatric exam: Present: normal affect, normal mood. Absent: agitated, anxious, depressed - Skin Skin exam: Present: dry, intact, warm. Absent: cyanosis, rash - Patient Status Disposition: Transfer Other Condition: Good Overall status at discharge: patient is progressing back to baseline - Discharge Instructions Follow Up With: Maki Lopez MD [Primary Care Provider] - ([facility] is [facility] no PCP appointment needed) Additional Instructions: Follow up with PCP in 2-3 days after discharge. Recheck BMP and CBC at that time. Make appointment for outpatient ECHO due to bradycardia. Refer to cardiology if necessary. - Diet and Activity Activity: resume usual activities as tolerated Diet: low fat, low cholesterol, low salt diet, other (Cardiac Diet, Mechanically Altered Diet Ground Meat)
[2018-06-22 12:07] VITALS: BP 147/84
== END 2018-06-22 12:38 | disposition other institution (70) | DRG 194 ==
LOC: EMEROO 08:30 → 2ANU 08:30 → 2NNU 11:18 → SUATTDRO 17:23
PROVIDERS: ADMIT Hospitalist; ATTEND Internal Medicine

== ENCOUNTER 2021-01-28 21:46 | Inpatient (IN) ==
[2021-01-28] MEDS ORDERED: *HR* FentaNYL (PF) 100 MCG/2 ML VIAL IVP ONE (22:32)
[2021-01-28 23:36] LABS: Basophils # 0.1 K/mcL (0.0-0.2); Basophils % 0.5 %; Eosinophils # 0.3 K/mcL (0.0-0.6); Eosinophils % 1.8 %; Hematocrit 38.5 % (35.3-44.9); Hemoglobin 12.1 g/dL (11.5-15.4); Immature Granulocytes % 0.4 % (0-4); Lymphocytes # 1.3 K/mcL (0.6-4.6); Lymphocytes % 9.4 %; Mean Corpuscular HGB Conc 31.4 g/dL (31.6-35.5); Mean Corpuscular Hemoglobin 30.3 pg (28.0-33.3); Mean Corpuscular Volume 96.5 fL (83.0-100.0); Mean Platelet Volume 10.9 fL (9.4-12.4); Monocytes # 0.7 K/mcL (0.0-1.3); Monocytes % 4.9 %; Neutrophils # 11.6 K/mcL (1.6-8.9); Platelet Count 172 K/mcL (140-400); Red Blood Count 3.99 M/mcL (3.82-4.97); Red Cell Distribution Width 13.8 % (11.5-14.5)
[2021-01-28 23:38] LABS: INR 1.4; Prothrombin Time 16.5 Seconds (9.4-12.1)
[2021-01-28 23:41] LABS: Activated Partial Thrombo Time 33.6 Seconds (26.0-36.0)
[2021-01-28 23:52] LABS: BUN/Creatinine Ratio 31 (6-26); Blood Urea Nitrogen 26 mg/dL (8-23); Carbon Dioxide 26 mEq/L (23-29); Chloride 108 mEq/L (98-107); Glucose 129 mg/dL (70-105); Osmolality,Calculated 298 (280-300); Potassium 4.3 mEq/L (3.5-5.1); Sodium 141 mEq/L (136-145); eGFR For African Americans > 60 (> 60); eGFR For Non-African Americans > 60 (> 60)
[2021-01-29 01:43] LABS: Adenovirus Not Detected (Not Detect); Bordetella Pertussis Not Detected (Not Detect); Chlamydophila pneumoniae Not Detected (Not Detect); Coronavirus 229E Not Detected (Not Detect); Coronavirus HKU1 Not Detected (Not Detect); Coronavirus NL63 Not Detected (Not Detect); Coronavirus OC43 Not Detected (Not Detect); Human Metapneumovirus Not Detected (Not Detect); Human Rhinovirus/Enterovirus Not Detected (Not Detect); Influenza A Subtype 2009 H1 Not Detected (Not Detect); Influenza B Not Detected (Not Detect); Mycoplasma pneumoniae Not Detected (Not Detect); Parainfluenza Virus 1 Not Detected (Not Detect); Parainfluenza Virus 2 Not Detected (Not Detect); Parainfluenza Virus 3 Not Detected (Not Detect); Parainfluenza Virus 4 Not Detected (Not Detect); Respiratory Syncytial Virus Not Detected (Not Detect); SARS-CoV-2 Not Detected (Not Detect)
[2021-01-29] MEDS ORDERED: *HR* Promethazine 25 MG/ML VIAL IM PRN (01:54)
[2021-01-29] MEDS ORDERED: Naloxone 0.4 MG/ML INJ IVP PRN (01:54)
[2021-01-29] MEDS ORDERED: Ondansetron 4 MG/2 ML VIAL IVP PRN (01:54)
[2021-01-29] MEDS ORDERED: Acetaminophen 325 MG TABLET PO PRN (01:54)
[2021-01-29 03:43] LABS: Basophils # 0.1 K/mcL (0.0-0.2); Basophils % 0.4 %; Eosinophils # 0.2 K/mcL (0.0-0.6); Eosinophils % 1.5 %; Hemoglobin 11.3 g/dL (11.5-15.4); Immature Granulocytes % 0.3 % (0-4); Lymphocytes # 1.8 K/mcL (0.6-4.6); Lymphocytes % 14.4 %; Mean Corpuscular HGB Conc 31.4 g/dL (31.6-35.5); Mean Corpuscular Hemoglobin 29.4 pg (28.0-33.3); Mean Corpuscular Volume 93.5 fL (83.0-100.0); Mean Platelet Volume 10.9 fL (9.4-12.4); Monocytes % 8.3 %; Neutrophils # 9.3 K/mcL (1.6-8.9); Platelet Count 169 K/mcL (140-400); Red Blood Count 3.85 M/mcL (3.82-4.97); Red Cell Distribution Width 13.9 % (11.5-14.5); Segmented Neutrophils % 75.1 %; White Blood Count 12.4 K/mcL (4.3-11.1)
[2021-01-29 03:50] LABS: INR 1.4; Prothrombin Time 15.8 Seconds (9.4-12.1)
[2021-01-29 04:03] LABS: BUN/Creatinine Ratio 31 (6-26); Blood Urea Nitrogen 24 mg/dL (8-23); Calcium 8.8 mg/dL (8.6-10.3); Carbon Dioxide 25 mEq/L (23-29); Chloride 110 mEq/L (98-107); Glucose 128 mg/dL (70-105); Osmolality,Calculated 298 (280-300); Potassium 4.2 mEq/L (3.5-5.1); Sodium 141 mEq/L (136-145); eGFR For African Americans > 60 (> 60); eGFR For Non-African Americans > 60 (> 60)
[2021-01-29] MEDS: *HR* OxyCODONE Immed Rel 5 MG TABLET PO PRN ×2 (09:37→20:34)
[2021-01-29 18:07] LABS: Hematocrit 30.1 % (35.3-44.9)
[2021-01-29 18:08] LABS: Hemoglobin 9.7 g/dL (11.5-15.4)
[2021-01-29] MEDS: *HR* Heparin 5,000 UNIT/ML VIAL SQ SCH (18:51)
[2021-01-29] MEDS: Baclofen 10 MG TABLET PO SCH (20:34)
[2021-01-30 01:25] LABS: Basophils % 0.4 %; Eosinophils # 0.1 K/mcL (0.0-0.6); Eosinophils % 0.6 %; Hematocrit 27.8 % (35.3-44.9); Hemoglobin 8.8 g/dL (11.5-15.4); Immature Granulocytes % 0.2 % (0-4); Lymphocytes # 2.2 K/mcL (0.6-4.6); Lymphocytes % 21.8 %; Mean Corpuscular HGB Conc 31.7 g/dL (31.6-35.5); Mean Corpuscular Volume 94.9 fL (83.0-100.0); Mean Platelet Volume 11.2 fL (9.4-12.4); Monocytes % 10.2 %; Neutrophils # 6.6 K/mcL (1.6-8.9); Platelet Count 150 K/mcL (140-400); Red Blood Count 2.93 M/mcL (3.82-4.97); Segmented Neutrophils % 66.8 %; White Blood Count 9.9 K/mcL (4.3-11.1)
[2021-01-30 01:45] LABS: BUN/Creatinine Ratio 34 (6-26); Blood Urea Nitrogen 27 mg/dL (8-23); Calcium 8.5 mg/dL (8.6-10.3); Carbon Dioxide 26 mEq/L (23-29); Chloride 110 mEq/L (98-107); Glucose 126 mg/dL (70-105); Osmolality,Calculated 301 (280-300); Potassium 4.1 mEq/L (3.5-5.1); Sodium 142 mEq/L (136-145); eGFR For African Americans > 60 (> 60); eGFR For Non-African Americans > 60 (> 60)
[2021-01-30] MEDS: *HR* Heparin 5,000 UNIT/ML VIAL SQ SCH (05:55)
[2021-01-30] MEDS: Baclofen 10 MG TABLET PO SCH (08:50)
[2021-01-30] MEDS ORDERED: Calamine/Zinc oxide Lotion 120 ML BOTTLE TP PRN ×2 (15:43→21:30)
[2021-01-30] MEDS ORDERED: Divalproex (24 HR) 250 MG TABLET PO SCH (17:00)
[2021-01-30] MEDS ORDERED: Ondansetron 4 MG/2 ML VIAL ONE (17:22)
[2021-01-30] MEDS ORDERED: Lidocaine -MPF 2% 2 ML VIAL ONE (17:22)
[2021-01-30] MEDS ORDERED: Dexamethasone 4 MG/ML VIAL ONE (17:22)
[2021-01-30] MEDS ORDERED: *HR* FentaNYL (PF) 100 MCG/2 ML VIAL ONE (17:23)
[2021-01-30] MEDS ORDERED: *HR* Propofol 200 MG/20 ML VIAL IVP ONE (17:23)
[2021-01-30] MEDS ORDERED: *HR* HYDROmorphone (PF) 1 MG/ML SYRINGE IVP PRN (17:35)
[2021-01-30] MEDS ORDERED: Ethanol\\Acetic Acid\\Na Ace\\Ben 1,000 ML IRRIG.SOLN IR ONE (17:49)
[2021-01-30] MEDS ORDERED: *HR* HYDROMORPHONE 2 MG/ML VIAL ONE (18:21)
[2021-01-30] MEDS ORDERED: EPHEDrine 50 MG/ML VIAL ONE (18:39)
[2021-01-30] MEDS ORDERED: Vancomycin 1,000 MG VIAL ONE (19:02)
[2021-01-30 20:39] LABS: Hematocrit 26.9 % (35.3-44.9); Hemoglobin 8.1 g/dL (11.5-15.4)
[2021-01-30] MEDS ORDERED: Famotidine 20 MG TABLET PO SCH (21:00)
[2021-01-30] MEDS ORDERED: Ascorbic Acid 500 MG TABLET PO SCH (21:00)
[2021-01-30] MEDS ORDERED: polyethylene glycoL 3350 17 GM POWD.PACK PO SCH (21:00)
[2021-01-30] MEDS ORDERED: Mirtazapine 15 MG TABLET PO SCH (21:00)
[2021-01-30] MEDS ORDERED: *HR* Promethazine 25 MG/ML VIAL IM PRN (21:30)
[2021-01-30] MEDS ORDERED: Acetaminophen 325 MG TABLET PO PRN (21:30)
[2021-01-30] MEDS ORDERED: Naloxone 0.4 MG/ML INJ IVP PRN (21:30)
[2021-01-30] MEDS ORDERED: Ondansetron 4 MG/2 ML VIAL IVP PRN (21:30)
[2021-01-30] MEDS ORDERED: *HR* OxyCODONE Immed Rel 5 MG TABLET PO PRN (21:30)
[2021-01-30] MEDS ORDERED: 0.9 % Sodium Chloride 1,000 ML IVC ONE (22:27)
[2021-01-31 00:34] LABS: Hematocrit 23.5 % (35.3-44.9); Hemoglobin 6.7 g/dL (11.5-15.4)
[2021-01-31] MEDS ORDERED: 0.9 % Sodium Chloride 1,000 ML IVC ONE ×2 (00:35→20:05)
[2021-01-31] MEDS: *HR* OxyCODONE Immed Rel 5 MG TABLET PO PRN ×2 (00:45→09:45)
[2021-01-31] MEDS: CeFAZolin 2 GM/120 ML BAG IVPB SCH ×2 (01:10→11:25)
[2021-01-31 01:27] LABS: BUN/Creatinine Ratio 35 (6-26); Blood Urea Nitrogen 31 mg/dL (8-23); Calcium 7.5 mg/dL (8.6-10.3); Carbon Dioxide 15 mEq/L (23-29); Chloride 113 mEq/L (98-107); Glucose 144 mg/dL (70-105); Osmolality,Calculated 301 (280-300); Potassium 4.4 mEq/L (3.5-5.1); Sodium 141 mEq/L (136-145); eGFR For African Americans > 60 (> 60); eGFR For Non-African Americans > 60 (> 60)
[2021-01-31] MEDS ORDERED: 0.9 % Sodium Chloride 250 ML IVC SCH (01:45)
[2021-01-31] MEDS ORDERED: 0.9 % Sodium Chloride 500 ML ONE (04:00)
[2021-01-31] MEDS ORDERED: NON-FORMULARY MEDICATION 1 EACH EACH (Pantoprazole Sodium [Protonix] 40 MG Tablet.Dr) PO SCH (07:00)
[2021-01-31] MEDS ORDERED: NON-FORMULARY MEDICATION 1 EACH EACH (Esomeprazole Magnesium [Nexium] 20 MG Capsule.Dr) PO SCH (08:00)
[2021-01-31 08:13] LABS: Hematocrit 22.8 % (35.3-44.9); Hemoglobin 7.4 g/dL (11.5-15.4)
[2021-01-31] MEDS ORDERED: Apixaban 5 MG TABLET PO SCH (09:00)
[2021-01-31] MEDS ORDERED: Cholecalciferol (D-3) 1,000 UNIT (25MCG) TABLET PO SCH (09:00)
[2021-01-31] MEDS ORDERED: Fluticasone Propionate Nasal 50 MCG/SPRAY BOTTLE NS SCH (09:00)
[2021-01-31] MEDS ORDERED: Psyllium 1 PACKET POWD.PACK PO SCH (09:00)
[2021-01-31] MEDS: Baclofen 10 MG TABLET PO SCH ×2 (09:38→21:04)
[2021-01-31] MEDS: Apixaban 5 MG TABLET PO SCH ×2 (09:38→21:05)
[2021-01-31] MEDS: Cholecalciferol (D-3) 1,000 UNIT (25MCG) TABLET PO SCH (09:39)
[2021-01-31] MEDS: Psyllium 1 PACKET POWD.PACK PO SCH (09:39)
[2021-01-31] MEDS: Ascorbic Acid 500 MG TABLET PO SCH ×2 (09:40→21:04)
[2021-01-31] MEDS: Fluticasone Propionate Nasal 50 MCG/SPRAY BOTTLE NS SCH (11:36)
[2021-01-31 15:12] LABS: Hematocrit 21.5 % (35.3-44.9)
[2021-01-31 16:11] LABS: Basophils % 0.2 %; Hematocrit 21.7 % (35.3-44.9); Immature Granulocytes % 0.5 % (0-4); Lymphocytes # 1.3 K/mcL (0.6-4.6); Mean Corpuscular HGB Conc 32.3 g/dL (31.6-35.5); Mean Corpuscular Hemoglobin 30.8 pg (28.0-33.3); Mean Corpuscular Volume 95.6 fL (83.0-100.0); Mean Platelet Volume 10.9 fL (9.4-12.4); Monocytes # 1.8 K/mcL (0.0-1.3); Monocytes % 12.6 %; Neutrophils # 11.1 K/mcL (1.6-8.9); Nucleated Red Blood Cells 0.2 /100 WBC (0); Platelet Count 136 K/mcL (140-400); Red Blood Count 2.27 M/mcL (3.82-4.97); Red Cell Distribution Width 14.2 % (11.5-14.5); Segmented Neutrophils % 77.7 %; White Blood Count 14.3 K/mcL (4.3-11.1)
[2021-01-31] MEDS: Divalproex (24 HR) 250 MG TABLET PO SCH (16:14)
[2021-01-31] MEDS ORDERED: Famotidine 20 MG TABLET PO SCH (21:00)
[2021-01-31] MEDS: polyethylene glycoL 3350 17 GM POWD.PACK PO SCH (21:03)
[2021-01-31] MEDS: Mirtazapine 15 MG TABLET PO SCH (21:05)
[2021-01-31] MEDS: Famotidine 20 MG TABLET PO SCH (21:05)
[2021-01-31 21:34] LABS: Hematocrit 23.2 % (35.3-44.9); Hemoglobin 7.5 g/dL (11.5-15.4)
[2021-02-01 00:44] LABS: VBG Ionized Calcium 1.07 mmol/L (1.15-1.35)
[2021-02-01 00:44] LABS: Basophils % 0.2 %; Eosinophils % 0.1 %; Hematocrit 22.1 % (35.3-44.9); Hemoglobin 7.1 g/dL (11.5-15.4); Immature Granulocytes % 0.6 % (0-4); Lymphocytes # 1.4 K/mcL (0.6-4.6); Lymphocytes % 11.5 %; Mean Corpuscular HGB Conc 32.1 g/dL (31.6-35.5); Mean Corpuscular Hemoglobin 29.2 pg (28.0-33.3); Mean Corpuscular Volume 90.9 fL (83.0-100.0); Mean Platelet Volume 10.6 fL (9.4-12.4); Monocytes # 1.3 K/mcL (0.0-1.3); Monocytes % 10.9 %; Neutrophils # 9.2 K/mcL (1.6-8.9); Nucleated Red Blood Cells 0.4 /100 WBC (0); Platelet Count 115 K/mcL (140-400); Red Blood Count 2.43 M/mcL (3.82-4.97); Red Cell Distribution Width 17.2 % (11.5-14.5); Segmented Neutrophils % 76.7 %; White Blood Count 12.1 K/mcL (4.3-11.1)
[2021-02-01 01:01] LABS: BUN/Creatinine Ratio 42 (6-26); Blood Urea Nitrogen 27 mg/dL (8-23); Calcium 7.4 mg/dL (8.6-10.3); Carbon Dioxide 25 mEq/L (23-29); Chloride 112 mEq/L (98-107); Glucose 123 mg/dL (70-105); Osmolality,Calculated 300 (280-300); Potassium 3.7 mEq/L (3.5-5.1); Sodium 142 mEq/L (136-145); eGFR For African Americans > 60 (> 60); eGFR For Non-African Americans > 60 (> 60)
[2021-02-01 07:47] LABS: Basophils % 0.3 %; Immature Granulocytes % 0.8 % (0-4); Lymphocytes % 13.3 %; Mean Platelet Volume 11.5 fL (9.4-12.4)
[2021-02-01 07:49] LABS: Eosinophils % 0.2 %; Hematocrit 21.7 % (35.3-44.9); Hemoglobin 7.3 g/dL (11.5-15.4); Immature Platelets 3.5 % (1.1-6.1); Lymphocytes # 1.6 K/mcL (0.6-4.6); Mean Corpuscular HGB Conc 33.6 g/dL (31.6-35.5); Mean Corpuscular Hemoglobin 30.5 pg (28.0-33.3); Mean Corpuscular Volume 90.8 fL (83.0-100.0); Monocytes # 1.3 K/mcL (0.0-1.3); Neutrophils # 8.7 K/mcL (1.6-8.9); Nucleated Red Blood Cells 0.5 /100 WBC (0); Platelet Count 123 K/mcL (140-400); Red Blood Count 2.39 M/mcL (3.82-4.97); Red Cell Distribution Width 17.4 % (11.5-14.5); Segmented Neutrophils % 74.4 %; White Blood Count 11.7 K/mcL (4.3-11.1)
[2021-02-01] MEDS: Baclofen 10 MG TABLET PO SCH ×2 (08:24→21:44)
[2021-02-01] MEDS: Psyllium 1 PACKET POWD.PACK PO SCH (08:24)
[2021-02-01] MEDS: Apixaban 5 MG TABLET PO SCH (08:24)
[2021-02-01] MEDS: Ascorbic Acid 500 MG TABLET PO SCH ×2 (08:25→21:44)
[2021-02-01] MEDS: Cholecalciferol (D-3) 1,000 UNIT (25MCG) TABLET PO SCH (08:25)
[2021-02-01] MEDS: Fluticasone Propionate Nasal 50 MCG/SPRAY BOTTLE NS SCH (08:35)
[2021-02-01] MEDS: Divalproex (24 HR) 250 MG TABLET PO SCH (16:39)
[2021-02-01] MEDS: Famotidine 20 MG TABLET PO SCH (21:44)
[2021-02-01] MEDS: Mirtazapine 15 MG TABLET PO SCH (21:44)
[2021-02-01] MEDS: polyethylene glycoL 3350 17 GM POWD.PACK PO SCH (21:45)
[2021-02-02 01:41] LABS: Hematocrit 24.5 % (35.3-44.9); Hemoglobin 7.8 g/dL (11.5-15.4)
[2021-02-02] MEDS: Ascorbic Acid 500 MG TABLET PO SCH (07:52)
[2021-02-02] MEDS: Cholecalciferol (D-3) 1,000 UNIT (25MCG) TABLET PO SCH (07:52)
[2021-02-02] MEDS: Baclofen 10 MG TABLET PO SCH (07:53)
[2021-02-02] MEDS: Fluticasone Propionate Nasal 50 MCG/SPRAY BOTTLE NS SCH (08:09)
[2021-02-02] MEDS: Psyllium 1 PACKET POWD.PACK PO SCH (08:09)
[2021-02-02 10:28] VITALS: BP 104/61
== END 2021-02-02 11:51 | disposition other institution (70) | DRG 481 ==
LOC: 3NENU 21:46 → EMEROOARM 21:46 → SUATTDRO 01-29 00:37 → 3NENU 01-29 01:22
PROVIDERS: ADMIT Internal Medicine; ATTEND Internal Medicine

== ENCOUNTER 2021-09-13 05:41 | Inpatient (IN) ==
[2021-09-13 06:49] LABS: Basophils % 0.4 %; Eosinophils # 0.1 K/mcL (0.0-0.6); Eosinophils % 0.7 %; Hematocrit 36.8 % (35.3-44.9); Hemoglobin 11.3 g/dL (11.5-15.4); Immature Granulocytes % 0.2 % (0-4); Lymphocytes # 1.3 K/mcL (0.6-4.6); Lymphocytes % 12.5 %; Mean Corpuscular HGB Conc 30.7 g/dL (31.6-35.5); Mean Corpuscular Hemoglobin 28.9 pg (28.0-33.3); Mean Corpuscular Volume 94.1 fL (83.0-100.0); Mean Platelet Volume 10.2 fL (9.4-12.4); Monocytes # 0.7 K/mcL (0.0-1.3); Monocytes % 7.3 %; Neutrophils # 8.1 K/mcL (1.6-8.9); Platelet Count 142 K/mcL (140-400); Red Blood Count 3.91 M/mcL (3.82-4.97); Red Cell Distribution Width 14.8 % (11.5-14.5); Segmented Neutrophils % 78.9 %; White Blood Count 10.2 K/mcL (4.3-11.1)
[2021-09-13 06:54] LABS: INR 1.3; Prothrombin Time 14.5 Seconds (9.4-12.1)
[2021-09-13 06:57] LABS: Activated Partial Thrombo Time 33.4 Seconds (26.0-36.0)
[2021-09-13 07:07] LABS: BUN/Creatinine Ratio 26 (6-26); Blood Urea Nitrogen 21 mg/dL (8-23); Calcium 8.9 mg/dL (8.6-10.3); Carbon Dioxide 28 mEq/L (23-29); Chloride 106 mEq/L (98-107); Glucose 108 mg/dL (70-105); Osmolality,Calculated 298 (280-300); Potassium 3.4 mEq/L (3.5-5.1); Sodium 142 mEq/L (136-145); eGFR For African Americans > 60 (> 60); eGFR For Non-African Americans > 60 (> 60)
[2021-09-13 07:08] LABS: Troponin I 0.03 ng/mL (< 0.04)
[2021-09-13] MEDS ORDERED: cefTRIAXone 1,000 MG in 0.9 % Sodium Chloride Mini Bag 100 ML IVPB ONE (07:18)
[2021-09-13] MEDS ORDERED: Azithromycin 500 MG in 0.9 % Sodium Chloride 250 ML IVPB ONE (07:18)
[2021-09-13 07:43] LABS: Influenza A PCR Negative (Negative); Influenza B PCR Negative (Negative); Resp. Syncytial Virus PCR Positive (Negative)
[2021-09-13 07:44] LABS: SARS-CoV-2 by PCR (In House) Negative (Negative)
[2021-09-13] MEDS ORDERED: Potassium Chloride Elixir 20 MEQ/15 ML UDC PO ONE (08:30)
[2021-09-13] MEDS ORDERED: Ipratropium/Albuterol Neb 3 ML IH PRN (08:45)
[2021-09-13] MEDS ORDERED: Acetaminophen 325 MG TABLET PO PRN (08:47)
[2021-09-13] MEDS ORDERED: Ondansetron 4 MG/2 ML VIAL IVP PRN (08:57)
[2021-09-13] MEDS ORDERED: Naloxone 0.4 MG/ML INJ IVP PRN (08:57)
[2021-09-13] MEDS: Apixaban 5 MG TABLET PO SCH ×2 (09:40→20:55)
[2021-09-13] MEDS: Baclofen 10 MG TABLET PO SCH ×2 (09:40→20:55)
[2021-09-13] MEDS: Azithromycin 500 MG in 0.9 % Sodium Chloride 250 ML IVPB SCH ×2 (09:41→11:46)
[2021-09-13] MEDS: 0.9 % Sodium Chloride 1,000 ML IVC SCH (09:42)
[2021-09-13] MEDS: Divalproex (24 HR) 250 MG TABLET PO SCH (16:32)
[2021-09-13] MEDS: Mirtazapine 15 MG TABLET PO SCH (20:55)
[2021-09-14 03:12] LABS: Basophils # 0.1 K/mcL (0.0-0.2); Basophils % 0.6 %; Eosinophils # 0.4 K/mcL (0.0-0.6); Eosinophils % 4.7 %; Hematocrit 33.3 % (35.3-44.9); Hemoglobin 10.7 g/dL (11.5-15.4); Immature Granulocytes % 0.2 % (0-4); Lymphocytes # 1.8 K/mcL (0.6-4.6); Lymphocytes % 19.8 %; Mean Corpuscular HGB Conc 32.1 g/dL (31.6-35.5); Mean Corpuscular Hemoglobin 30.1 pg (28.0-33.3); Mean Corpuscular Volume 93.5 fL (83.0-100.0); Mean Platelet Volume 10.1 fL (9.4-12.4); Monocytes # 0.9 K/mcL (0.0-1.3); Monocytes % 9.8 %; Neutrophils # 5.8 K/mcL (1.6-8.9); Platelet Count 143 K/mcL (140-400); Red Blood Count 3.56 M/mcL (3.82-4.97); Red Cell Distribution Width 14.6 % (11.5-14.5); Segmented Neutrophils % 64.9 %; White Blood Count 8.9 K/mcL (4.3-11.1)
[2021-09-14 03:31] LABS: BUN/Creatinine Ratio 23 (6-26); Blood Urea Nitrogen 13 mg/dL (8-23); Calcium 8.1 mg/dL (8.6-10.3); Carbon Dioxide 25 mEq/L (23-29); Chloride 110 mEq/L (98-107); Glucose 83 mg/dL (70-105); Osmolality,Calculated 295 (280-300); Sodium 143 mEq/L (136-145); eGFR For African Americans > 60 (> 60); eGFR For Non-African Americans > 60 (> 60)
[2021-09-14] MEDS: 0.9 % Sodium Chloride 1,000 ML IVC SCH (07:32)
[2021-09-14] MEDS: Apixaban 5 MG TABLET PO SCH ×2 (09:38→21:13)
[2021-09-14] MEDS: Baclofen 10 MG TABLET PO SCH ×2 (09:38→21:13)
[2021-09-14] MEDS: cefTRIAXone 1,000 MG in 0.9 % Sodium Chloride Mini Bag 100 ML IVPB SCH (09:38)
[2021-09-14] MEDS: Divalproex (24 HR) 250 MG TABLET PO SCH (18:00)
[2021-09-14] MEDS: Mirtazapine 15 MG TABLET PO SCH (21:13)
[2021-09-15] MEDS: cefTRIAXone 1,000 MG in 0.9 % Sodium Chloride Mini Bag 100 ML IVPB SCH (08:59)
[2021-09-15] MEDS: Apixaban 5 MG TABLET PO SCH ×2 (08:59→21:55)
[2021-09-15] MEDS: Baclofen 10 MG TABLET PO SCH ×2 (08:59→21:55)
[2021-09-15] MEDS ORDERED: E-Z-PAQUE (BARIUM SULF) SUSP 1 BOTTLE PO ONE (10:49)
[2021-09-15] MEDS ORDERED: E-Z-HD (BARIUM SULF) SUSPENSION PO ONE (10:49)
[2021-09-15] MEDS: Divalproex (24 HR) 250 MG TABLET PO SCH (17:47)
[2021-09-15] MEDS: Mirtazapine 15 MG TABLET PO SCH (21:55)
[2021-09-16] MEDS: Baclofen 10 MG TABLET PO SCH ×2 (09:16→19:25)
[2021-09-16] MEDS: Apixaban 5 MG TABLET PO SCH ×2 (09:16→19:25)
[2021-09-16] MEDS: cefTRIAXone 1,000 MG in 0.9 % Sodium Chloride Mini Bag 100 ML IVPB SCH (09:17)
[2021-09-16] MEDS ORDERED: FLU Vac QV 21-22 (6Month+)/PF 0.5 ML SYRINGE IM ONE (11:35)
[2021-09-16] MEDS: Divalproex (24 HR) 250 MG TABLET PO SCH (17:11)
[2021-09-16] MEDS: Mirtazapine 15 MG TABLET PO SCH (19:25)
[2021-09-16 21:12] VITALS: BP 110/60; PULSE 67; TEMP 97.6; O2SAT 92
== END 2021-09-16 21:30 | disposition home or self-care (01) | DRG 871 ==
LOC: 2ANU 05:41 → EMEROOARM 05:41 → SUATTDRO 07:57 → 2ANU 09:07
PROVIDERS: ADMIT Family Medicine; ATTEND Internal Medicine